=== PATIENT | female | born 1980 | race Caucasian/White ===

== ENCOUNTER 2022-12-11 11:37 | Emergency (ER) | payer SELFPAY ==
[~2022-12-11] VITALS: Ht 162.6 cm; Wt 72.0 kg
[2022-12-11 11:40] VITALS: BP 138/72
[2022-12-11] MEDS ORDERED: SODIUM CHLORIDE 0.9% 1,000 ML IV ONE (11:45)
[2022-12-11] MEDS ORDERED: PANTOPRAZOLE SODIUM 40 MG/VIAL IV ONE (12:00)
[2022-12-11] MEDS ORDERED: ONDANSETRON HCL 4MG/2ML INJ IV ONE (12:00)
[2022-12-11 14:29] LABS: BASOPHILS % 0.9 % (0.0-2.0); EOSINOPHILS % 1.3 % (0.0-5.0); HEMATOCRIT. 36.7 % (36.0-48.0); HEMOGLOBIN. 11.6 g/dL (12.0-16.0); LYMPHOCYTES % 13.2 % (20.0-50.0); MEAN CORPUSCULAR HEMOGLOBIN 24.2 pg (28.0-32.0); MEAN CORPUSCULAR VOLUME 76.8 fL (81.0-99.0); MEAN PLATELET VOLUME 9.5 fl (7.4-10.4); NEUTROPHILS % 79.6 % (40.0-76.0); PLATELET 303 x1000/uL (130-400); RED BLOOD CELL COUNT 4.78 mill/uL (4.2-5.4); RED CELL DISTRIBUTION WIDTH 17.1 % (11.6-14.6)
[2022-12-11 14:34] LABS: CHLORIDE 102 mEq/L (98-107)
[2022-12-11 14:38] LABS: INR 0.9
[2022-12-11 14:44] LABS: ETHANOL BLOOD < 10 mg/dL
[2022-12-11 14:48] LABS: HCG SCREEN NEGATIVE
[2022-12-11] MEDS ORDERED: ACET-2708 MT (15:41)
== END 2022-12-11 15:42 | disposition home or self-care (01) ==
LOC: ER 11:47
DX: N83.201 Unspecified ovarian cyst, right side (principal); R10.9 Unspecified abdominal pain; R11.2 Nausea with vomiting, unspecified; F31.9 Bipolar disorder, unspecified; F20.9 Schizophrenia, unspecified
CPT/HCPCS: 36415; 71045; 76830; 76856; 80053; 80307; 80320; 80329; 83690; 84703; 85025; 85610; 86850; 86900; 86901; 99285; J7030; G0480